=== PATIENT | male | born 1935 | race Caucasian/White ===

== ENCOUNTER 2018-07-31 10:48 | Inpatient (IN) | payer MEDICARE, BC ==
[~2018-07-31] VITALS: Ht 177.8 cm; Wt 104.4 kg
[2018-07-31 11:32] LABS: BASOPHILS ABSOLUTE AUTO 0.04 K/mm3 (0.00-0.23); BASOPHILS PERCENT AUTO 1 % (0-2); EOSINOPHILS ABSOLUTE AUTO 0.24 K/mm3 (0.00-0.68); EOSINOPHILS PERCENT AUTO 4 % (0-6); Hematocrit 41.5 % (37.0-53.0); IMMATURE GRAN ABSOLUTE AUTO 0.02 K/mm3 (0.00-0.10); IMMATURE GRAN PERCENT AUTO 0 % (0-1); LYMPHOCYTES ABSOLUTE AUTO 2.01 K/mm3 (0.84-5.20); LYMPHOCYTES PERCENT AUTO 33 % (21-46); MONOCYTES ABSOLUTE AUTO 0.67 K/mm3 (0.16-1.47); MONOCYTES PERCENT AUTO 11 % (4-13); Mean Corpuscular HGB 31.3 pg (26.0-34.0); Mean Corpuscular HGB Conc 33.7 g/dL (31.5-36.5); Mean Corpuscular Volume 93 fL (80-100); Mean Platelet Volume 9.8 fL (9.1-12.4); NEUTROPHILS ABSOLUTE AUTO 3.16 K/mm3 (1.96-9.15); NEUTROPHILS PERCENT AUTO 52 % (41-73); Platelet Count 208 K/mm3 (150-400); RDW Coefficient Variation 12.7 % (11.7-14.2); RDW Standard Deviation 43.4 fL (35.1-46.3); Red Blood Cell Count 4.48 M/mm3 (4.30-5.90); White Blood Cell Count 6.14 K/mm3 (4.00-11.30)
[2018-07-31 11:53] LABS: Alanine Aminotransfer (ALT/SGP 65 U/L (12-78); Albumin, Blood 3.6 g/dL (3.4-5.0); Alk Phos 63 U/L (50-136); Anion Gap 8 mmol/L (6-16); Aspartate Aminotrans (AST/SGOT 32 U/L (12-37); Blood Urea Nitrogen 15 mg/dL (8-24); Bun/Creatinine Ratio 12.9 (12.0-20.0); CO2, Blood 26 mmol/L (21-32); Calcium, Blood 8.6 mg/dL (8.5-10.1); Chloride, Blood 103 mmol/L (98-108); Creatinine, Blood 1.16 mg/dL (0.60-1.20); Globulin, Blood 3.6 g/dL (2.2-4.0); Glomerular Filtration Rate >60 (60-); Glucose, Blood 197 mg/dL (70-99); Potassium, Blood 3.4 mmol/L (3.5-5.5); Sodium, Blood 137 mmol/L (136-145); Total Protein, Blood 7.2 g/dL (6.4-8.2); Troponin I 0.073 ng/mL (0.000-0.040)
[2018-07-31] MEDS ORDERED: Pantoprazole So40 MG PO (17:51)
[2018-07-31] MEDS ORDERED: ASPI81CH PO (17:52)
[2018-07-31] MEDS ORDERED: LEVSOD50 PO (17:52)
[2018-07-31] MEDS ORDERED: OLMESARTAN-HCT1 EACH PO (17:52)
[2018-07-31] MEDS ORDERED: Metformin HCl500 MG PO (17:52)
[2018-07-31] MEDS ORDERED: Fish Oil 10001000 MG PO (17:53)
[2018-07-31] MEDS ORDERED: MULTI VITAMIN1 EACH PO (17:53)
[2018-07-31 20:49] LABS: Creatine Kinase MB 31.5 ng/mL (0.0-3.6); Creatine Kinase MB Index 5.8 (0.0-4.0)
[2018-07-31 20:54] LABS: Troponin I 9.08 ng/mL (0.000-0.040)
[2018-07-31 23:19] LABS: International Normalized Ratio 0.97; Prothrombin Time Results 10.3 Sec (9.7-11.5)
--- NOTE | 2018-08-01 05:46 | NUR ---
82 Y/O MALE RESTED COMFORTABLY IN BED ALL NIGHT, DENIES CHEST PAIN, PRESSURE OR DYSPNEA. PT IS SCHEDULED FOR HEART CARDIOLOGY CONSULT THIS AM. PTS TELEMETRY REFLECTS NSR PER PRODUCTION CONTROL EXPEDITER. PTS CALL LIGHT AT SIDE WITH BED IN LOW POSITION. PT ALERT AND ORIENTED X3.
[2018-08-01 05:49] LABS: Hemoglobin 13.6 g/dL (13.5-17.5); Mean Corpuscular HGB 31.3 pg (26.0-34.0); Mean Corpuscular HGB Conc 34.9 g/dL (31.5-36.5); Mean Platelet Volume 10.3 fL (9.1-12.4); Platelet Count 217 K/mm3 (150-400); RDW Coefficient Variation 12.4 % (11.7-14.2); Red Blood Cell Count 4.35 M/mm3 (4.30-5.90); White Blood Cell Count 10.75 K/mm3 (4.00-11.30)
[2018-08-01 05:54] LABS: Mean Corpuscular Volume 90 fL (80-100)
[2018-08-01 06:17] LABS: Alanine Aminotransfer (ALT/SGP 62 U/L (12-78); Albumin, Blood 3.4 g/dL (3.4-5.0); Albumin/Globulin Ratio 0.9 (0.8-1.8); Alk Phos 60 U/L (50-136); Anion Gap 10 mmol/L (6-16); Aspartate Aminotrans (AST/SGOT 70 U/L (12-37); Bilirubin, Total 0.7 mg/dL (0.1-1.0); Blood Urea Nitrogen 12 mg/dL (8-24); Bun/Creatinine Ratio 12.1 (12.0-20.0); CHOL/HDL RATIO 4.1; CO2, Blood 25 mmol/L (21-32); Calcium, Blood 8.3 mg/dL (8.5-10.1); Chloride, Blood 104 mmol/L (98-108); Cholesterol 148 mg/dL (50-200); Creatinine, Blood 0.99 mg/dL (0.60-1.20); Globulin, Blood 3.6 g/dL (2.2-4.0); Glomerular Filtration Rate >60 (60-); Glucose, Blood 136 mg/dL (70-99); HDL Cholesterol 36 mg/dL (>39); LDL/HDL RATIO 2.1; Low Density Lipoprotein Chol 75 mg/dL (0-110); Potassium, Blood 3.7 mmol/L (3.5-5.5); Sodium, Blood 139 mmol/L (136-145); Triglycerides 186 mg/dL (30-160); Very Low Density Lipoprot Chol 37 mg/dL (6-32)
[2018-08-01 07:25] LABS: Creatine Kinase MB Index 4.8 (0.0-4.0)
[2018-08-01 07:43] LABS: Troponin I 14.3 ng/mL (0.000-0.040)
--- NOTE | 2018-08-01 08:00 | NUR ---
PT PLEASANT COOP A/O DENIES PAIN, PRESSURE, TIGHTNESS IN CHEST. HAS FELT WEAK LAST COUPLE DAYS SINCE ONSET. H/R REG, NO MURMER NOTED. PT DENIES PACER. PER TELE: S BLAKE AT 58. LUNGS CLEAR, RESP EASY, UNLABORED. ON R/A. PLACED ON 2L O2 PER PROTOCOL. PT DENIES SOB. BT X4 LAST BM THIS AM. VOIDS PER BATHROOM. INDEPENDANT IN ROOM. BED IN LOW POSITION,C ALL LITE IN REACH, CALLS APPROP
--- NOTE | 2018-08-01 11:12 | NUR ---
[address] TURNER IN [facility]. RE TROP ELEVATED. SHE TO SEE PT SHORTLY. ORDERS GIVEN, EKG, ETC. SPOKE TO DR SU TO UPDATE
--- NOTE | 2018-08-01 11:14 | NUR ---
PT TO HEART CENTER AT 1115 REPORT CALLED TO CAM RUIZ RN AT 1104
--- NOTE | 2018-08-01 19:38 | NUR ---
Shift Summary No acute changes since initial shift assessment. VSS. In no apparent sign of distress. Pt is A&Ox4. Calls appropriately and repositions self. Denies any pain or CP. Pt arrived to unit from at approx 1245. R radial access site has been free from any s/sx of bleed or hematoma. TR band deflated and recovered per protocol/orders and clear dressing placed at 1900. Pt is compliant with R wrist restrictions. Pt is currently resting in bed with call light within reach. Pt on RA. SB on tele. Will keep overnight to monitor per Dr. Shelby. Pt is currently resting in bed with call light within reach. Denies any further questions, complaints or requests at this time. Will continue to monitor until report is given to marleny REID.
[2018-08-02 04:20] LABS: BASOPHILS ABSOLUTE AUTO 0.06 K/mm3 (0.00-0.23); BASOPHILS PERCENT AUTO 1 % (0-2); EOSINOPHILS ABSOLUTE AUTO 0.18 K/mm3 (0.00-0.68); EOSINOPHILS PERCENT AUTO 2 % (0-6); Hematocrit 39.8 % (37.0-53.0); Hemoglobin 13.3 g/dL (13.5-17.5); IMMATURE GRAN ABSOLUTE AUTO 0.02 K/mm3 (0.00-0.10); IMMATURE GRAN PERCENT AUTO 0 % (0-1); LYMPHOCYTES ABSOLUTE AUTO 2.34 K/mm3 (0.84-5.20); LYMPHOCYTES PERCENT AUTO 31 % (21-46); MONOCYTES PERCENT AUTO 13 % (4-13); Mean Corpuscular HGB Conc 33.4 g/dL (31.5-36.5); Mean Platelet Volume 10.4 fL (9.1-12.4); NEUTROPHILS ABSOLUTE AUTO 4.06 K/mm3 (1.96-9.15); NEUTROPHILS PERCENT AUTO 53 % (41-73); Platelet Count 208 K/mm3 (150-400); RDW Coefficient Variation 12.9 % (11.7-14.2); RDW Standard Deviation 43.8 fL (35.1-46.3); Red Blood Cell Count 4.29 M/mm3 (4.30-5.90); White Blood Cell Count 7.66 K/mm3 (4.00-11.30)
[2018-08-02 04:39] LABS: Mean Corpuscular Volume 93 fL (80-100)
[2018-08-02 04:51] LABS: Alanine Aminotransfer (ALT/SGP 54 U/L (12-78); Albumin, Blood 3.3 g/dL (3.4-5.0); Alk Phos 59 U/L (50-136); Anion Gap 5 mmol/L (6-16); Aspartate Aminotrans (AST/SGOT 47 U/L (12-37); Bilirubin, Total 0.9 mg/dL (0.1-1.0); Blood Urea Nitrogen 13 mg/dL (8-24); Bun/Creatinine Ratio 11.7 (12.0-20.0); CO2, Blood 29 mmol/L (21-32); Calcium, Blood 8.3 mg/dL (8.5-10.1); Chloride, Blood 106 mmol/L (98-108); Creatinine, Blood 1.11 mg/dL (0.60-1.20); Globulin, Blood 3.4 g/dL (2.2-4.0); Glomerular Filtration Rate >60 (60-); Glucose, Blood 125 mg/dL (70-99); Potassium, Blood 3.8 mmol/L (3.5-5.5); Sodium, Blood 140 mmol/L (136-145); Total Protein, Blood 6.7 g/dL (6.4-8.2)
--- NOTE | 2018-08-02 06:23 | NUR ---
SHIFT SUMMARY PT A&O X4, CALM AND COOPERATIVE, INDEPENDENT IN ROOM. PT DENIES CP OR ANY OTHER DISCOMFORT T/O SHIFT. R RADIAL ACCESS SITE WNL, NO BLEEDING, NO HEMATOMA. R RADIAL SITE DRESSED W/ TEGADERM & ARM IMMOBILIZED W/ ARM BOARD. PT LUNG SOUNDS CLEAR T/O. SPO2 > 92% ON RA. MONITOR SHOWS SB, HR 50'S. VSS. WILL CONTINUE TO MONITOR AND PROVIDE CARE UNTIL REPORT OFF TO DAY SHIFT RN.
--- NOTE | 2018-08-02 08:13 | NUR ---
Assumed Care: Assumed care of pt at approx 0700. VSS. In no apparent sign of distress. Pt is A&Ox4. Calls appropriately and is independent in the room. Compliant with R wrist activity restrictions. See shift assessment for detailed assessment. Dr. Escobar in to see pt this AM and plan is to keep pt until at least later this afternoon to see how pt tolerates slow incorporation of increased activity. Faxed paperwork for cardiac rehab yesterday. Pt is currently resting in bed with call light within reach. Denies any further questions, complaints or requests at this time. Will continue to monitor.
[2018-08-02] MEDS ORDERED: ATOR80 PO (18:47)
[2018-08-02] MEDS ORDERED: CLOP75 PO (18:47)
[2018-08-02] MEDS ORDERED: Lopressor 25 mg25 MG PO (18:48)
[2018-08-02] MEDS ORDERED: NITR.4SL SL (18:49)
--- NOTE | 2018-08-02 19:33 | NUR ---
Discharge: Pt discharged at approx 1930 with . Provided educational handouts for all new medications. Instructed pt on follow-up appointments, medications and other discharge instructions. Pt provided with instructions on post radial angio site care. Faxed new medications to [facility] pharmacy in [place]. Pt signed ASA/Plavix contract. Pt denies any further questions, complaints or requests at time of transfer. Pt in no apparent sign of distress at time of transfer.
== END 2018-08-02 19:30 | disposition home or self-care (01) | DRG 247 ==
LOC: ER 10:48 → MEDS 10:49 → ER 16:46 → PCU 20:00 → MEDS 20:12 → PCU 08-01 11:24
PROVIDERS: Emergency Medicine; Internal Medicine; Internal Medicine Cardiovascular Disease; ADMIT Internal Medicine
PROC: 4A023N7 Measurement of Cardiac Sampling and Pressure, Left Heart, Percutaneous Approach (ICD-10-PCS; principal; 2018-08-01)
PROC: 027034Z Dilation of Coronary Artery, One Artery with Drug-eluting Intraluminal Device, Percutaneous Approach (ICD-10-PCS; 2018-08-01)
PROC: B211YZZ Fluoroscopy of Multiple Coronary Arteries using Other Contrast (ICD-10-PCS; 2018-08-01)
DX: I21.4 Non-ST elevation (NSTEMI) myocardial infarction (principal); K21.9 Gastro-esophageal reflux disease without esophagitis; I10 Essential (primary) hypertension; E03.9 Hypothyroidism, unspecified; E11.9 Type 2 diabetes mellitus without complications; E66.01 Morbid (severe) obesity due to excess calories; Z68.32 Body mass index [BMI] 32.0-32.9, adult; I16.0 Hypertensive urgency; E87.6 Hypokalemia; E78.5 Hyperlipidemia, unspecified; Z85.820 Personal history of malignant melanoma of skin; Z68.33 Body mass index [BMI] 33.0-33.9, adult
CPT/HCPCS: 36415; 71046; 80053; 80061; 82550; 82553; 82947; 83036; 83880; 84484; 85025; 85027; 85347; 85610; 85730; 93005; 93010; 93306; 93454; 99152; 99153; 99285-25; C1725; C1769; C1874; C1887; C1894; C9113; C9600; J1644; J2250; J3010; J7030; Q9967

== ENCOUNTER → 2022-08-15 | Outpatient (CLI) | payer MEDICARE, BC ==
[~2022-08-15] MED LIST: ASPI81CH PO; ATOR80 PO; CLOP75 PO; Fish Oil 10001000 MG PO; Hydrochloroth12.5 MG PO; IBUP600 PO; Keflex500 MG PO; LEVSOD50 PO; LOSARTAN POTASS25 M2 PO; Lopressor 25 mg25 MG PO; METO25ER PO; MULTI VITAMIN1 EACH PO; Metformin HCl500 MG PO; NITR.4SL SL; Norco 5-325 Ta1 EACH PO; OLMESARTAN-HCT1 EACH PO; Pantoprazole So40 MG PO
== END | disposition home or self-care (01) ==
LOC: LAB 14:11 → LAB SHORT 14:11
DX: N39.0 Urinary tract infection, site not specified (principal)
CPT/HCPCS: 87077; 87086; 87186

== ENCOUNTER → 2022-09-06 | Outpatient (CLI) | payer MEDICARE, BC | END | disposition home or self-care (01) | LOC: LAB SHORT 13:33 → LAB 13:33 | DX: N10 Acute pyelonephritis (principal) | CPT/HCPCS: 87086 ==